=== PATIENT | female | born 1965 | race Two or more races ===

== ENCOUNTER 2020-02-12 17:32 | Inpatient (IN) | payer MEDICAID ==
[~2020-02-12] VITALS: Ht 177.8 cm; Wt 99.8 kg
--- NOTE | 2020-02-12 17:32 | NUR ---
ED Nurse Note: Pt was brought in by ambulance from home d/t heavy vaginal bleeding x 3 days. Per EMS pt changes adult diaper TID x 3 days. Pt is AOx4, on RA, ambulatory, VSS, afebrile on triage. Per report, pt has a hx of fibroids. Placed on bed and gown; will continue to monitor.
--- NOTE | 2020-02-12 17:40 | Emergency Room Report ---
History of Present Illness General Chief Complaint: Vaginal Source: EMS Present Illness HPI Disclaimer: Please note that this report is being documented using DRAGON technology. This can lead to erroneous entry secondary to incorrect interpretation by the dictating instrument. HPI: 54-year-old female presents for evaluation of vaginal bleeding. Patient states she has been having continuous vaginal bleeding for the past 3 days going through approximately 3-4 adult diapers daily. She was seen at [facility] yesterday with similar complaints diagnosed with multiple uterine fibroids by ultrasound. Her hemoglobin at that time was 9.2. She was discharged home. Patient states he is having lower abdominal cramping and irregular bleeding over the past 2 years. She is concerned over the persistent bleeding. She is also feeling somewhat lightheaded and unsteady while rising from a seated position. There is no loss of consciousness. Otherwise denies fever, chills, cough, shortness of breath, vomiting, diarrhea. PMH: Denies PSH: Denies Allergies: Morphine Social Hx: Denies drug or alcohol abuse Allergies: Coded Allergies: MORPHINE (Verified Allergy, Unknown, 02/12/20) COVID-19 Screening Contact w/high risk pt: No Recent Travel to affected area: No Experienced COVID-19 symptoms?: No Review of Systems All Other Systems: negative except mentioned in HPI Physical Exam Vital Signs Date Time Temp Pulse Resp B/P (MAP) Pulse Ox O2 Delivery O2 Flow Rate FiO2 02/12/20 17:25 98.2 92 16 127/77 (94) 96 Room Air General: Awake and alert, appears mildly uncomfortable HEENT: NC/AT. EOMI. Resp: Normal work of breathing. Abdomen: Abdomen is soft, nondistended. Nontender . Gross blood in adult diaper skin: Intact. No abrasions, laceration or rash over the exposed skin MSK: Normal tone and bulk. Moving all extremities. No obvious deformity. Neuro: Awake and alert. Mentating appropriately. Procedures Critical Care Time Critical Care Time Total critical care time: Approximately 31 minutes Due to a high probability of clinically significant, life threatening deterioration, the patient required the highest level of preparedness to intervene emergently and I personally spent this critical care time directly and personally managing the patient. This critical care time included obtaining a history, examining the patient, pulse oximetry, ordering and reviewing studies , ordering treatments, evaluating response to treatment and updating management plan as needed, frequent reassessment and discussion with other providers as well as arranging for ultimate disposition. This critical to care time was performed to assess and manage the high probability of life-threatening deterioration that could result in multiorgan failure. This critical care time is separate from the separately billable procedures and treating other patients. Medical Decision Making Diagnostic Impression: Primary Impression: Vaginal bleeding Additional Impression: Anemia ER Course Is a 54-year-old female with recent diagnosis of uterine fibroids presenting for continued vaginal bleeding over the past 3 days. Patient's labs from yesterday are provided in her discharge paperwork from [facility]. Hemoglobin at that time was 9.2 and will have to be rechecked today given her symptoms of lightheadedness and unsteadiness on her feet while rising from a seated position. Likely, her uterine fibroids will require surgical intervention which we cannot offer her at our facility. Will obtain labs including type and screen in preparation for possible transfusion. Will start IV fluids, pain medication. Laboratory Tests Test 02/12/20 18:00 White Blood Count 8.6 K/UL (4.8-10.8) Red Blood Count 2.77 M/UL (4.20-5.40) L Hemoglobin 7.1 G/DL (12.0-16.0) L Hematocrit 22.4 % (37.0-47.0) L Mean Corpuscular Volume 81 FL (80-99) Mean Corpuscular Hemoglobin 25.7 PG (27.0-31.0) L Mean Corpuscular Hemoglobin Concent 31.7 G/DL (32.0-36.0) L Red Cell Distribution Width 14.7 % (11.6-14.8) Platelet Count 202 K/UL (150-450) Mean Platelet Volume 9.5 FL (6.5-10.1) Neutrophils (%) (Auto) % (45.0-75.0) Lymphocytes (%) (Auto) % (20.0-45.0) Monocytes (%) (Auto) % (1.0-10.0) Eosinophils (%) (Auto) % (0.0-3.0) Basophils (%) (Auto) % (0.0-2.0) Differential Total Cells Counted 100 Neutrophils % (Manual) 71 % (45-75) Lymphocytes % (Manual) 25 % (20-45) Monocytes % (Manual) 2 % (1-10) Eosinophils % (Manual) 2 % (0-3) Basophils % (Manual) 0 % (0-2) Band Neutrophils 0 % (0-8) Platelet Estimate Adequate Platelet Morphology Normal Hypochromasia 2+ Anisocytosis 1+ Sodium Level 141 MMOL/L (136-145) Potassium Level 3.9 MMOL/L (3.5-5.1) Chloride Level 106 MMOL/L (98-107) Carbon Dioxide Level 28 MMOL/L (21-32) Anion Gap 8 mmol/L (5-15) Blood Urea Nitrogen 10 mg/dL (7-18) Creatinine 0.6 MG/DL (0.55-1.30) Estimated Glomerular Filtration Rate > 60 mL/min (>60) Glucose Level 212 MG/DL (74-106) H Calcium Level 8.4 MG/DL (8.5-10.1) L Reevaluation Time: 20:07 Last Vital Signs Date Time Temp Pulse Resp B/P (MAP) Pulse Ox O2 Delivery O2 Flow Rate FiO2 02/12/20 17:25 98.2 92 16 127/77 (94) 96 Room Air Reevaluation Impression Hemoglobin seems to have dropped acutely from 9.2 on yesterday's labs at outside facility to 7.1 today. Patient will require transfusion at admission. Will admit to panel physician. CORRECTIONAL CLASSIFICATION COUNSELOR consulted; they will evaluate the patient while admitted to the hospital. Patient consented to blood and will begin transfusion as soon as it is ready. Vital signs remained stable though she is symptomatic from this anemia complaining of lightheadedness. She agrees with this treatment plan. Disposition: ADMITTED INPATIENT Condition: Serious Gentry Urban MD Feb 12, 2020 17:40
[2020-02-12 17:48] VITALS: BP 127/77
--- NOTE | 2020-02-12 18:00 | NUR ---
ED Nurse Note: Established second IV line on RT hand 20G, blood sent to labs. Hydration on-going on site, intact, patent and infusing well.
[2020-02-12 18:30] LABS: ANION GAP 8 mmol/L (5-15); BLOOD UREA NITROGEN 10 mg/dL (7-18); CALCIUM 8.4 MG/DL (8.5-10.1); CARBON DIOXIDE 28 MMOL/L (21-32); CHLORIDE 106 MMOL/L (98-107); CREATININE 0.6 MG/DL (0.55-1.30); POTASSIUM 3.9 MMOL/L (3.5-5.1); SODIUM 141 MMOL/L (136-145)
[2020-02-12 18:38] LABS: HEMATOCRIT 22.4 % (37.0-47.0); HEMOGLOBIN 7.1 G/DL (12.0-16.0); MEAN CORPUSCULAR VOLUME 81 FL (80-99); PLATELET COUNT 202 K/UL (150-450); RED BLOOD COUNT 2.77 M/UL (4.20-5.40); RED CELL DISTRIBUTION WIDTH 14.7 % (11.6-14.8); WHITE BLOOD COUNT 8.6 K/UL (4.8-10.8)
--- NOTE | 2020-02-12 19:30 | NUR ---
ED Nurse Note: Hand-off given to GABRIELE Singleton for continuity of care.
--- NOTE | 2020-02-12 19:30 | NUR ---
ED Nurse Note: Report received from GABRIELE Hsu. No acute ditress noted, pt is sleeping at this time. Will carry out order for blood transfusion.
--- NOTE | 2020-02-12 20:20 | NUR ---
ED Nurse Note: Blood transfusion started at this time. No acute distress noted. Pt provided with warm blankets and repositioned for comfort. Pt is aaox4. VSS.
--- NOTE | 2020-02-12 20:35 | NUR ---
ED Nurse Note: Blood transfusion infusing at this time, no complications noted 15 min after initiating transfusion. Will continue to monitor pt.
--- NOTE | 2020-02-12 21:50 | NUR ---
ED Nurse Note: Report given to GABRIELE Estes.
--- NOTE | 2020-02-12 22:35 | NUR ---
NURSE NOTES: Received report from CEM Betancourt RN via telephone at 2120. Pt arrived in the unit via [place] at 5 with her belongings. Pt is awake, lying semi-teresa's; comfortably resting. Pt was able to transfer to bed with staff member supervision. No signs of acute distress noted. Pt denies any pain at this time. AOx4; able to make needs known. Blood product noted and running. Checked IV sites, line, and rate; patent and running. No erythema or infiltration noted. No vaginal bleeding at this time. Bed at lowest position. Brakes on. Siderails up x3. Call light within reach. Will continue to monitor.
--- NOTE | 2020-02-12 22:40 | NUR ---
ED Nurse Note: Pt stable for transfer to [facility] unit at this time per ERMD. Pt is aaox4, breathing is normal and no acute distress noted. Pt transferred to unit via tech and RN. Pt has PRBCs infusing still upon transfer to floor, no complications. IV is patent and intact. Pt belongings sent with pt.
[2020-02-13] VITALS: BP 119/66
--- NOTE | 2020-02-13 01:10 | NUR ---
NURSE NOTES: Dr. Borden, covering for Dr. Elizondo, gynecology, came to see the pt to discuss the plan of care. Mo via [employer] phone is used to translate treatment options between the MD and pt.
--- NOTE | 2020-02-13 01:17 | General Progress Note ---
Progress Note Progress Note Gynecology consult note Dr Darell Borden S: Pt is a 54 yo woman admitted for acute anemia. Pt is postmenopausal with her last period occurring 4 years go, however she has had bouts of postmenopausal bleeding intermittently. She states that she had an endometrial biopsy 04/21 which was negative for any cancerous or precancerous changes. She was seen at [facility] since she has had vaginal bleeding very heavy for the last 8 days. Today the bleeding has decreased significantly. Ultrasound at [facility] shows numberous fibroids in the uterus, the largest 11 cm in size. Pt was told she needed surgery but hasn't gotten around to it. She presents to [facility] since her hb has decreased from 9 to 7. She has been admitted for blood transfusions O VSS 114/68 pulse 78 good color, no pallor no active vaginal bleeding currently ultrasound yesterday shows stripe of 12 mm, multiple fibroids with largest measuring 11 cm A/P Pt with postmenopausal bleeding and large fibroid uterus. Pt will likely to intermittently bleed significantly until fibroids are treated. Treatment options include a hysterectomy or techniques that involve shrinking the fibroids. Pt may consider depo lupron therapy for several months or arterial embolization. Both techniques will shrink the fibroids down 30-40% and at her age, regrowth will be minimal. Bleeding then should either stop or at the very least improve greatly to the point where she will no longer be anemic anymore. Hysterectomy will be definitive but will be more invasive and whe will need to be evaluated to see if she is a surgical candidate. Expect pt to finish transfusions without difficultly and be discharged later today. Pt will need to establish care with an rehab trainer (she states she has al list of doctors given to her) and will proceed with one of the options outlined above. Darell Borden M.D. Feb 13, 2020 01:17
[2020-02-13 04:00] VITALS: BP 112/61
[2020-02-13] MEDS: D5NS 1,000 ML IV SCH ×3 (05:01→15:36)
[2020-02-13] MEDS: NovoLOG Insulin Flexpen SUBQ SCH ×5 (05:19→21:15)
[2020-02-13 05:52] LABS: BASOPHILS % (AUTO) 1.1 % (0.0-2.0); EOSINOPHILS % (AUTO) 2.8 % (0.0-3.0); HEMATOCRIT 24.4 % (37.0-47.0); HEMOGLOBIN 8.3 G/DL (12.0-16.0); LYMPHOCYTES % (AUTO) 31.5 % (20.0-45.0); MEAN CORPUSCULAR VOLUME 80 FL (80-99); MONOCYTES % (AUTO) 5.7 % (1.0-10.0); NEUTROPHILS % (AUTO) 58.9 % (45.0-75.0); PLATELET COUNT 176 K/UL (150-450); RED BLOOD COUNT 3.06 M/UL (4.20-5.40); RED CELL DISTRIBUTION WIDTH 12.8 % (11.6-14.8); WHITE BLOOD COUNT 7.6 K/UL (4.8-10.8)
[2020-02-13 06:12] LABS: ALANINE AMINOTRANSFERASE 19 U/L (12-78); ALBUMIN 2.8 G/DL (3.4-5.0); ALBUMIN/GLOBULIN RATIO 0.9 (1.0-2.7); ALKALINE PHOSPHATASE 72 U/L (46-116); ANION GAP 8 mmol/L (5-15); ASPARTATE AMINO TRANSFERASE 17 U/L (15-37); BILIRUBIN,TOTAL 0.2 MG/DL (0.2-1.0); BLOOD UREA NITROGEN 9 mg/dL (7-18); CALCIUM 8.3 MG/DL (8.5-10.1); CARBON DIOXIDE 26 MMOL/L (21-32); CHLORIDE 110 MMOL/L (98-107); CREATININE 0.5 MG/DL (0.55-1.30); POTASSIUM 3.4 MMOL/L (3.5-5.1); SODIUM 144 MMOL/L (136-145)
--- NOTE | 2020-02-13 07:35 | NUR ---
NURSE NOTES: WALKING ROUNDS DONE WITH NIGHT RN. PATIENT AWAKE HAVING BREAKFAST.QUESTIONS ANSWERED, NEEDS MET. DISCUSSED PLAN OF CARE FOR THE DAY. VERBALIZED UNDERSTANDING. PATIENT STABLE. BED IN LOW AND LOCKED POSITION. CALL LIGHT WITHIN REACH.
--- NOTE | 2020-02-13 07:55 | NUR ---
HAND-OFF: Report given to GABRIELE Su. Pt is sleeping and in stable condition. Plan of care endorsed.
[2020-02-13 08:00] VITALS: BP 118/51
[2020-02-13 11:47] VITALS: BP 114/58
--- NOTE | 2020-02-13 12:15 | General Progress Note ---
Assessment/Plan Assessment/Plan: Full Dictation in progress: S: Feeling fatigue O: seems comfortable. persistent heavy bleeding 1- Acute Breakthrough vaginal bleeding Plan: current Brand Planner care Subjective Allergies: Coded Allergies: MORPHINE (Verified Allergy, Unknown, 02/12/20) Objective Last 24 Hour Vital Signs Date Time Temp Pulse Resp B/P (MAP) Pulse Ox O2 Delivery O2 Flow Rate FiO2 02/13/20 11:47 99.2 85 18 114/58 (76) 99 02/13/20 09:00 Room Air 02/13/20 08:00 98.4 74 18 118/51 (73) 97 02/13/20 04:00 98.0 76 20 112/61 (78) 96 02/13/20 00:00 98.5 77 20 119/66 (83) 99 02/12/20 23:27 Room Air 02/12/20 22:40 97.8 80 19 106/55 100 Room Air 02/12/20 20:35 97.5 84 19 02/12/20 20:25 97.4 91 18 02/12/20 20:20 97.4 86 17 02/12/20 17:48 98.2 16 127/77 96 Room Air 02/12/20 17:25 98.2 92 16 127/77 (94) 96 Room Air Intake and Output 02/12/20 02/13/20 19:00 07:00 Intake Total 350 ml Balance 350 ml Intake Oral 350 ml # Voids 1 # Sanitary Pads 3 Laboratory Tests 02/12/20 18:00: White Blood Count 8.6, Red Blood Count 2.77L, Hemoglobin 7.1L, Hematocrit 22.4L , Mean Corpuscular Volume 81, Mean Corpuscular Hemoglobin 25.7L, Mean Corpuscular Hemoglobin Concent 31.7L, Red Cell Distribution Width 14.7, Platelet Count 202, Mean Platelet Volume 9.5, Neutrophils (%) (Auto) , Lymphocytes (%) (Auto) , Monocytes (%) (Auto) , Eosinophils (%) (Auto) , Basophils (%) (Auto) , Differential Total Cells Counted 100, Neutrophils % ( Manual) 71, Lymphocytes % (Manual) 25, Monocytes % (Manual) 2, Eosinophils % ( Manual) 2, Basophils % (Manual) 0, Band Neutrophils 0, Platelet Estimate Adequate, Platelet Morphology Normal, Hypochromasia 2+, Anisocytosis 1+, Sodium Level 141, Potassium Level 3.9, Chloride Level 106, Carbon Dioxide Level 28, Anion Gap 8, Blood Urea Nitrogen 10, Creatinine 0.6, Estimat Glomerular Filtration Rate > 60, Glucose Level 212H, Calcium Level 8.4L 02/13/20 04:50: White Blood Count 7.6, Red Blood Count 3.06L, Hemoglobin 8.3L, Hematocrit 24.4L , Mean Corpuscular Volume 80, Mean Corpuscular Hemoglobin 27.1, Mean Corpuscular Hemoglobin Concent 34.0, Red Cell Distribution Width 12.8, Platelet Count 176, Mean Platelet Volume 7.8, Neutrophils (%) (Auto) 58.9, Lymphocytes (% ) (Auto) 31.5, Monocytes (%) (Auto) 5.7, Eosinophils (%) (Auto) 2.8, Basophils ( %) (Auto) 1.1, Sodium Level 144, Potassium Level 3.4L, Chloride Level 110H, Carbon Dioxide Level 26, Anion Gap 8, Blood Urea Nitrogen 9, Creatinine 0.5L, Estimat Glomerular Filtration Rate > 60, Glucose Level 131H, Calcium Level 8.3L , Total Bilirubin 0.2, Aspartate Amino Transf (AST/SGOT) 17, Alanine Aminotransferase (ALT/SGPT) 19, Alkaline Phosphatase 72, Total Protein 5.8L, Albumin 2.8L, Globulin 3.0, Albumin/Globulin Ratio 0.9L Height (Feet): 5 Height (Inches): 10.00 Weight (Pounds): 220 Jay Kerns MD Feb 13, 2020 12:15
--- NOTE | 2020-02-13 12:16 | History & Physical ---
History and Physical History & Physicial seen and examined. Full Dictation completed on 1210 hours Jay Kerns MD Feb 13, 2020 12:16
[2020-02-13 16:00] VITALS: BP 122/80
--- NOTE | 2020-02-13 17:14 | History and Physical Report ---
DATE OF ADMISSION: 02/12/2020 SOURCE OF INFORMATION: The patient and EMR. HISTORY OF PRESENT ILLNESS: The patient is a 54-year-old female with history of abnormal vaginal bleeding. The patient reported that got dizzy and the bleeding gets worst in the last 7 days. The patient came to the emergency room with hemoglobin of 7.1 and was admitted for the controlling of the bleeding . No shortness of breath. No chest pain. No diarrhea. No constipation. ALLERGIES: Morphine. SOCIAL HISTORY: The patient is , has two children. Denies history of illicit drug abuse or alcohol abuse. PAST SURGICAL HISTORY: Cholecystectomy. PAST MEDICAL HISTORY: Uterine fibroid. MEDICATIONS: Current hospital medications including but not limited to Dilaudid as needed, Protonix 40 mg daily. PHYSICAL EXAMINATION: VITAL SIGNS: Blood pressure 110/80, temperature 98.2, pulse oximetry 98 % on room air, respiratory rate 18. HEAD AND NECK: Atraumatic and normocephalic. CHEST: Clear to auscultation. HEART: S1 and S2. Regular rate and rhythm. ABDOMEN: Soft. No organomegaly. MUSCULOSKELETAL: No gross focal motor deficit. NEUROLOGY: Awake, alert, oriented x3. LABORATORY DATA: Dated February 12, 2020 sodium 141, BUN 10, creatinine 0.6. Hemoglobin of 7.1, platelet count of 200. ASSESSMENT: 1. Abnormal heavy breakthrough vaginal bleeding. 2. Acute anemia . 3. Dizziness and diffuse weakness. 4. Uterine fibroids. 5. GI and DVT prophylaxis. PLAN OF CARE: Case discussed with ER attending. I agree for the admission. On-call gynecology Dr. Elizondo has been called and notified. COMMENTS: The time of this dictation does not reflect the actual time of encounter. Jay Kerns M.D. DR: Jose G JOB#: [id number] CC: SILVIA
--- NOTE | 2020-02-13 19:46 | NUR ---
NURSE NOTES: UNEVENTFUL DAY. PATIENT REMAINS STABLE. UP AMBULATING INDEPENDENTLY. DENIES DIZZINESS. VSS.AFEBRILE.
--- NOTE | 2020-02-13 19:52 | NUR ---
NURSES NOTE: Pt in bed, A/OX4, Turkmen speaking, but able to communicate appropriately. Denies pain at this time. No outward s/s of distress noted. Breathing is even and unlabored on RA. IV access noted. No s/s of infection. IVF infusing according to eMAR. All due meds will be given. Bed at lowest level, call light within reach.
[2020-02-13 20:00] VITALS: BP 125/62
--- NOTE | 2020-02-13 22:40 | CDS Physician Query ---
Clarification is required for compliance, coding accuracy, and to reflect severity of illness for this patient Dear Jay Bronson Date: 02.13.20 CDS: Piedad Zapata Please clarify the specific type of anemia below: Documentation supports persistent heavy bleeding" Hemoglobin 7.1 L, Hematocrit 2.4 L Acuity [ x]Acute [ ]Acute on Chronic [ ]Chronic Etiology [ x] Blood loss [ ] ESRD [ ] Neoplastic disease [ ] Iron deficiency [ ] GI Bleeding [ ] Anemia of chronic disease [ ] Dilutional [ ] Postoperative [ ] Unable to determine [ ] Other: Present on Admission: [ x] Yes [ ] No [ ] Clinically Undetermined Physician signature Date Please also document in your Progress Notes and/or Discharge Summary and indicate if the condition was present on admission. NAINAD
[2020-02-14] VITALS: BP 130/72
[2020-02-14 04:00] VITALS: BP 128/77
[2020-02-14] MEDS: D5NS 1,000 ML IV SCH ×2 (04:57→14:45)
[2020-02-14] MEDS: NovoLOG Insulin Flexpen SUBQ SCH ×2 (06:30→11:30)
[2020-02-14 08:00] VITALS: BP 133/61
--- NOTE | 2020-02-14 08:00 | NUR ---
NURSE NOTES: Received report from Kike SUAZO, pt a/a/o x4 laying in bed with no signs of distress or other issues at this time. pt stated that since Friday she hasn't bleed. IV on the right and left hand gauge #20 running D5NS@100ml/hr. no skin issues. pt stated that she feels ready to go home. call light within reach, bed in lowest position, side rales up x2. I will f/u as needed. plan to d/c home today.
--- NOTE | 2020-02-14 08:06 | NUR ---
HAND OFF: Report given to GABRIELE Diez. Patient in stable condition.
[2020-02-14 12:00] VITALS: BP 126/64
--- NOTE | 2020-02-14 13:21 | General Progress Note ---
Assessment/Plan Assessment/Plan: S: Feeling fatigue O: seems comfortable. persistent heavy bleeding PHYSICAL EXAMINATION:HEAD AND NECK: Atraumatic and normocephalic. CHEST: Clear to auscultation.HEART: S1 and S2. Regular rate and rhythm. ABDOMEN: Soft. No organomegaly.MUSCULOSKELETAL: No gross focal motor deficit. NEUROLOGY: Awake, alert, oriented x3. LABORATORY DATA: Dated February 13 reviewed. ASSESSMENT: 1. Abnormal heavy breakthrough vaginal bleeding. 2. Acute anemia . 3. Dizziness and diffuse weakness. 4. Uterine fibroids. 5. GI and DVT prophylaxis. PLAN OF CARE: Medically stable for outpatient followup Subjective Allergies: Coded Allergies: MORPHINE (Verified Allergy, Unknown, 02/12/20) Objective Last 24 Hour Vital Signs Date Time Temp Pulse Resp B/P (MAP) Pulse Ox O2 Delivery O2 Flow Rate FiO2 02/14/20 12:00 97.4 71 17 126/64 (84) 98 02/14/20 09:00 Room Air 02/14/20 08:00 98.0 77 17 133/61 (85) 98 02/14/20 04:00 98.3 79 17 128/77 (94) 79 02/14/20 00:00 98.6 76 16 130/72 (91) 76 02/13/20 21:00 Room Air 02/13/20 20:00 98.5 77 20 125/62 (83) 98 02/13/20 16:00 99.1 82 17 122/80 (94) 97 Intake and Output 02/13/20 02/14/20 19:00 07:00 Intake Total 1890 ml 1140 ml Balance 1890 ml 1140 ml Intake Oral 840 ml 240 ml IV Total 1050 ml 900 ml # Voids 3 2 Height (Feet): 5 Height (Inches): 10.00 Weight (Pounds): 220 Jay Kerns MD Feb 14, 2020 13:21
--- NOTE | 2020-02-14 14:03 | NUR ---
CASE MANAGEMENT: INITIAL REVIEW 54YR OLD BIBA FROM HOME CC: VAGINAL BLEEDING X3 DAYS SI:VAGINAL BLEEDING . ANEMIA 98.2 92 16 127/77 96% ON RA H/H 7.1/22.4 BG 212 CA+ 8.4 IS:IVF NS BOLUS X1 BLOOD TRANSFUSION X1 \: 3E MED SURG UNIT DCP: HOME WHEN STABLE PLAN: CONSULT KITCHEN WORKER US ABD- PENDING CASE MANAGEMENT: REVIEW 02/13/20 SI:VAGINAL BLEEDING . ANEMIA 99.2 85 18 114/58 99% ON RA H/H 8.3/24.4 K+ 3.4 CL-110 CREAT 0.5 BG 131 CA+ 8.3 IS:IV D5@100ML/HR PROTONIX PO QD TYLENOL PO Q6HR/PRN BLOOD TRANSFUSION X1 US ABD-shows stripe of 12 mm, multiple fibroids with largest measuring 11 cm \: 3E MED SURG UNIT DCP: HOME WHEN STABLE PLAN: ANTICIPATED DC IN AM
--- NOTE | 2020-02-14 14:05 | Consultation ---
History of Present Illness General Chief Complaint: Vaginal Present Illness Allergies: Coded Allergies: MORPHINE (Verified Allergy, Unknown, 02/12/20) Medication History No Active Prescriptions or Reported Meds Patient History Healthcare decision maker Resuscitation status Full Code Advanced Directive on File Physical Exam Last 24 Hour Vital Signs Date Time Temp Pulse Resp B/P (MAP) Pulse Ox O2 Delivery O2 Flow Rate FiO2 02/14/20 12:00 97.4 71 17 126/64 (84) 98 02/14/20 09:00 Room Air 02/14/20 08:00 98.0 77 17 133/61 (85) 98 02/14/20 04:00 98.3 79 17 128/77 (94) 79 02/14/20 00:00 98.6 76 16 130/72 (91) 76 02/13/20 21:00 Room Air 02/13/20 20:00 98.5 77 20 125/62 (83) 98 02/13/20 16:00 99.1 82 17 122/80 (94) 97 Intake and Output 02/13/20 02/14/20 19:00 07:00 Intake Total 1890 ml 1140 ml Balance 1890 ml 1140 ml Intake Oral 840 ml 240 ml IV Total 1050 ml 900 ml # Voids 3 2 Height (Feet): 5 Height (Inches): 10.00 Weight (Pounds): 220 Medications Current Medications Medications (Trade) Dose Ordered Sig/Daryn Route PRN Reason Start Time Stop Time Status Last Admin Dose Admin Acetaminophen (Tylenol) 650 mg Q6H PRN ORAL For Mild pain/ Temp > 100.3 02/12/20 22:45 03/13/20 22:44 02/13/20 21:16 Dextrose (Dextrose 50%) 25 ml Q30M PRN IV Hypoglycemia 02/12/20 22:45 05/12/20 22:44 Dextrose (Dextrose 50%) 50 ml Q30M PRN IV Hypoglycemia 02/12/20 22:45 05/12/20 22:44 Dextrose/Sodium Chloride 1,000 ml @ 100 mls/hr Q10H IV 02/12/20 22:45 03/13/20 22:44 02/14/20 04:57 Hydromorphone HCl (Dilaudid) 2 mg Q6H PRN IVP For moderate/severe pain 4/11/20 22:45 02/19/20 22:44 Insulin Aspart (NovoLOG) BEFORE MEALS AND HS SUBQ 02/13/20 06:30 05/13/20 06:29 Ondansetron HCl (Zofran) 4 mg Q6H PRN IVP Nausea & Vomiting 02/12/20 22:45 03/13/20 22:44 Pantoprazole (Protonix) 40 mg DAILY ORAL 02/13/20 09:00 03/14/20 08:59 02/14/20 08:38 Assessment/Plan Assessment/Plan: Hematology Consultation DARRELL NGUYEN: Jay Kerns [facility]: Anemia evaluation DOS: 02/14/2020 HPI: 54-year-old female presents for evaluation of vaginal bleeding. Patient states she has been having continuous vaginal bleeding for the past 3 days going through approximately 3-4 adult diapers daily. She was seen at [facility] yesterday with similar complaints diagnosed with multiple uterine fibroids by ultrasound. Her hemoglobin at that time was 9.2. She was discharged home. Patient states he is having lower abdominal cramping and irregular bleeding over the past 2 years. She is concerned over the persistent bleeding. She is also feeling somewhat lightheaded and unsteady while rising from a seated position. There is no loss of consciousness. Otherwise denies fever, chills, cough, shortness of breath, vomiting, diarrhea. Has been seen by street light lamp cleaner and recs were noted, have ordered for ferritin and iron panel today. PMH: Denies PSH: Denies Allergies: Morphine Social Hx: Denies drug or alcohol abuse Allergies: Coded Allergies: MORPHINE (Verified Allergy, Unknown, 02/12/20) COVID-19 Screening Contact w/high risk pt: No Recent Travel to affected area: No Experienced COVID-19 symptoms?: No ROS (review of systems): Constitutional: No fever, no chills, no night sweats, no fatigue Skin: No rashes, lumps, itchiness, dryness HEENT: No DAY, ear ache, visual changes, double vision, nosebleeds Breasts: No lumps, pain, discharge Pulmonary: No cough, sputum, shortness of breath, coughing up blood Cardiovascular: No chest pain, tightness, palpitations, syncope, PND GI: No nausea, vomiting, diarrhea, melena, hematochezia, change in appetite, : No dysuria, frequency, urgency, urinary incontinence, foamy urine Musculoskeletal: No joint swelling or muscle pain, trauma, back pain Neurologic: No dizziness, fainting, seizures, changes in smell or taste Psychiatric: No nervousness, stress, or depression, anxiety, hallucinations Endocrine: No weight change, heat or cold intolerance, tremor, insomnia Physical Exam: Vitals: reviewed General: NAD HEENT: nc, at Neck: supple Chest: clear breath sounds bilaterally Cardiovascular: RRR, no s3, s4 Neuro: alert and orientedROS (review of systems): Constitutional: No fever, no chills, no night sweats, no fatigue Skin: No rashes, lumps, itchiness, dryness HEENT: No DAY, ear ache, visual changes, double vision, nosebleeds Breasts: No lumps, pain, discharge Pulmonary: No cough, sputum, shortness of breath, coughing up blood Cardiovascular: No chest pain, tightness, palpitations, syncope, PND GI: No nausea, vomiting, diarrhea, melena, hematochezia, change in appetite, : No dysuria, frequency, urgency, urinary incontinence, foamy urine Musculoskeletal: No joint swelling or muscle pain, trauma, back pain Neurologic: No dizziness, fainting, seizures, changes in smell or taste Psychiatric: No nervousness, stress, or depression, anxiety, hallucinations Endocrine: No weight change, heat or cold intolerance, tremor, insomnia Physical Exam: Vitals: reviewed General: NAD HEENT: nc, at Neck: supple Chest: clear breath sounds bilaterally Cardiovascular: RRR, no s3, s4 Neuro: alert and orientedROS (review of systems): Constitutional: No fever, no chills, no night sweats, no fatigue Skin: No rashes, lumps, itchiness, dryness HEENT: No DAY, ear ache, visual changes, double vision, nosebleeds Breasts: No lumps, pain, discharge Pulmonary: No cough, sputum, shortness of breath, coughing up blood Cardiovascular: No chest pain, tightness, palpitations, syncope, PND GI: No nausea, vomiting, diarrhea, melena, hematochezia, change in appetite, : No dysuria, frequency, urgency, urinary incontinence, foamy urine Musculoskeletal: No joint swelling or muscle pain, trauma, back pain Neurologic: No dizziness, fainting, seizures, changes in smell or taste Psychiatric: No nervousness, stress, or depression, anxiety, hallucinations Endocrine: No weight change, heat or cold intolerance, tremor, insomnia Physical Exam: Vitals: reviewed General: NAD HEENT: nc, at Neck: supple Chest: clear breath sounds bilaterally Cardiovascular: RRR, no s3, s4 Neuro: alert and oriented Labs: noted Imaging: noted A/Recommendations # Anemia due to post-menopausal bleeding - Pt with postmenopausal bleeding and large fibroid uterus. Pt will likely to intermittently bleed significantly until fibroids are treated --> have ordered for anemia w/u --> trend hgb 7.1-->8.5 --> no evidence of hemolysis is seen --> street light lamp cleaner recs noted and may benefit from Lupron Depo or from hysterectomy --> ANEMIA PANEL ORDERED # Abnormal vaginal bleeding --> likely with anemia as consequence --> as per above issues # Hypokalemia --> replete with k as needed # Hypoalbuminemia --> recommend better po intake Appreciate consultation and dw Johnny Taylor MD Feb 14, 2020 14:05
[2020-02-14 15:30] LABS: INR 0.9 (0.9-1.1)
[2020-02-14 15:39] LABS: BASOPHILS % (AUTO) 1.7 % (0.0-2.0); EOSINOPHILS % (AUTO) 9.6 % (0.0-3.0); HEMOGLOBIN 8.6 G/DL (12.0-16.0); LYMPHOCYTES % (AUTO) 32.7 % (20.0-45.0); MEAN CORPUSCULAR VOLUME 82 FL (80-99); MONOCYTES % (AUTO) 5.6 % (1.0-10.0); NEUTROPHILS % (AUTO) 50.5 % (45.0-75.0); PLATELET COUNT 194 K/UL (150-450); RED BLOOD COUNT 3.17 M/UL (4.20-5.40); RED CELL DISTRIBUTION WIDTH 14.3 % (11.6-14.8); WHITE BLOOD COUNT 5.7 K/UL (4.8-10.8)
[2020-02-14 15:55] LABS: FERRITIN 5 NG/ML (8-388)
[2020-02-14 16:00] VITALS: BP 138/77
[2020-02-14 16:10] LABS: % IRON SATURATION 5 % (15-50); IRON 18 ug/dL (50-175); TOTAL IRON BINDING CAPACITY 332 ug/dL (250-450)
--- NOTE | 2020-02-14 17:00 | NUR ---
NURSE NOTES: Received order to d/c. discharge instructions and belongings given to patient. IV removed prior to d/c. pt is aware that needs to be fallow up with OBGYN as out patient. pt will contact [facility] for transportation. I will f/u as needed.
--- NOTE | 2020-02-15 12:20 | NUR ---
*-* CASE MANAGEMENT NOTES *-* UNABLE TO SUBMIT ETAR; NO DISCHARGE SUMMARY IN THE SYSTEM
--- NOTE | 2020-02-15 13:21 | Discharge Summary ---
Discharge Summary Discharge Summary _ DATE OF ADMISSION: 02/12/2020 DATE OF DISCHARGE: 02/14/2020 DISCHARGED BY: Dr. Kerns REASON FOR ADMISSION: 54 years old female with history of fibroids , presented for evaluation due to vaginal bleeding. Patient reported continuous vaginal bleeding for the past 3 days going through 3 -4 adult diapers daily. Patient was seen at [facility] with similar complaints few days ago and diagnosed with multiple uterine fibroids by ultrasound. At that time her hemoglobin was 9.2, and patient was discharged home with follow-up with [employer] [facility]ACHINE OPERATOR specialist as outpatient. Patient reported lower abdominal cramping and irregular bleeding over the past 2 years. At this time patient reported lightheadedness and unsteadiness while rising from a seated position. No loss of consciousness was reported. No fever or chills. No shortness of breath. No vomiting or diarrhea. Upon evaluation vital signs were stable. Laboratory work-up revealed no leukocytosis, hemoglobin down to 7.1, hematocrit 22.4, platelet count 202. Stable electrolytes and renal parameters.Glucose 212. Patient admitted due to acute anemia . [facility] cash register repairer/oncologist Dr. Yost [facility] specialist Dr. Borden [facility]: Patient admitted and started on the IV fluids. Patient typed and crossed and transfused with 2 units of packed red blood cells. Pain management was addressed as needed. Anemia work-up was consistent with anemia of iron deficiency. [facility]ONE PROCESSING MACHINE OPERATOR specialist seen and evaluated patient. Per [employer]ONE PROC[employer] MACHINE OPERATOR specialist , patient had a postmenopausal bleeding due to large fibroid uterus. [employer]ONE PROCESSING MACHINE OPERATOR specialist recommended treatment of fibroids, otherwise intermittent significant bleeding to be expected. Treatment options were discussed with patient, including hysterectomy as a definite treatment, as well as alternative management with Depo Lupron therapy for several months or arterial embolization . Both these procedure will shrink the fibroids 30 to 40% and due to her age control is probably will be minimal. Hysterectomy will be a definite treatment, but remains more invasive. Hemoglobin and hematocrit were closely monitored, prior to discharge hemoglobin 8.6, hematocrit 26. Patient remained hemodynamically stable . Potassium was replaced. Patient was stable for discharge home with outpatient follow-up with [employer]ACHINE OPERATOR specialist. FINAL DIAGNOSES: Anemia of acute blood loss , status post blood transfusion Postmenopausal bleeding due to large fibroid uterus Hypokalemia Dizziness and diffuse weakness -resolved DISCHARGE MEDICATIONS: See Medication Reconciliation list. DISCHARGE INSTRUCTIONS: Patient was discharged home. Patient was recommended to follow-up with the outpatient [employer]ONE PROCESSING MACHINE OPERATOR specialist for further management of uterine fibroids. I have been assigned to dictate discharge summary for this account. I was not involved in the patient's management. Jeanne Cruz NP Feb 15, 2020 13:21
== END 2020-02-14 17:25 | disposition home or self-care (01) | DRG 532 ==
LOC: EDBD 17:32 → EMR 17:47 → EDBEDREQ 21:17 → 3E 21:27
PROC: 30233N1 Transfusion of Nonautologous Red Blood Cells into Peripheral Vein, Percutaneous Approach (ICD-10-PCS; principal; 2020-02-12)
DX: D25.9 Leiomyoma of uterus, unspecified (principal); D62 Acute posthemorrhagic anemia; E87.6 Hypokalemia; N95.0 Postmenopausal bleeding; R42 Dizziness and giddiness; Z88.6 Allergy status to analgesic agent; E88.09 Other disorders of plasma-protein metabolism, not elsewhere classified
CPT/HCPCS: 36415; 80048; 80053; 82378; 82607; 82728; 82746; 83540; 83550; 84443; 85007; 85025; 85060; 85610; 86850; 86900; 86901; 86920; 96360; 99291